=== PATIENT | male | born 1985 | race African-American/Black ===

== ENCOUNTER 2019-09-24 20:10 | Emergency (ER) | payer OTHER ==
[~2019-09-24] VITALS: Ht 172.7 cm; Wt 100.0 kg
[2019-09-24 21:06] LABS: APPEARANCE,URINE CLEAR (CLEAR); BILIRUBIN,URINE NEGATIVE (NEGATIVE); GLUCOSE, URINE (UA) NEGATIVE (NEGATIVE); KETONES,URINE NEGATIVE (NEGATIVE); LEUKOCYTE ESTERASE ,URINE SMALL (NEGATIVE); NITRATE,URINE NEGATIVE (NEGATIVE); OCCULT BLOOD,URINE NEGATIVE (NEGATIVE); PROTEIN,URINE NEGATIVE (NEGATIVE)
[2019-09-24 21:30] LABS: BACTERIA,URINE None Seen /HPF (None Seen); SQUAMOUS EPITHELIAL CELL,UR None Seen /LPF (None Seen); WBC,URINE 0-2 /HPF (0-5)
[2019-09-24 21:31] LABS: RBC,URINE None Seen /HPF (0-2)
[2019-09-24] MEDS ORDERED: CefTRIAXone SODIUM 1 GM/VIAL IM ONE (23:15)
[2019-09-24] MEDS ORDERED: MetroNIDAZOLE 500 MG TABLET PO ONE (23:15)
[2019-09-24] MEDS ORDERED: AZITHROMYCIN 250 MG TABLET PO ONE (23:15)
[2019-09-24 23:47] VITALS: BP 132/80
== END 2019-09-24 23:54 | disposition home or self-care (01) ==
LOC: EMS 20:12
DX: N34.2 Other urethritis (principal); F17.200 Nicotine dependence, unspecified, uncomplicated
CPT/HCPCS: 36415; 81001; 86592; 87491; 87591; 96372; 99283; J0696

== ENCOUNTER 2023-06-10 00:54 | Emergency (ER) | payer OTHER ==
[~2023-06-10] VITALS: Ht 175.3 cm; Wt 122.0 kg
[2023-06-10 01:00] VITALS: BP 147/100; PULSE 75; RESP 17; TEMP 98.6
[2023-06-10] MEDS ORDERED: AZITHROMYCIN 500 MG TABLET PO ONE (01:30)
[2023-06-10] MEDS ORDERED: CefTRIAXone SODIUM 1 GM/VIAL IM ONE (01:30)
[2023-06-10] MEDS ORDERED: LIDOCAINE/PF 1% 2 ML VIAL IM ONE (01:30)
== END 2023-06-10 02:02 | disposition home or self-care (01) ==
LOC: EMS 00:57
DX: N34.2 Other urethritis (principal)
CPT/HCPCS: 99283; 96372; J0696; J3490; Q9967